=== PATIENT | male | born 1975 ===

== ENCOUNTER 2018-01-07 11:46 | Emergency (ER) | payer SELFPAY ==
[2018-01-07 12:00] VITALS: BP 140/85
--- NOTE | 2018-01-07 12:55 | UC ---
Back Pain HPI - HPI Summary HPI Summary: Patient reports a history of DDD/L1-L2 disc herniations and a five-year history of chronic low back pain. States he was managed by pain management in [place] and moved to [place] 6 months ago. When asked why he had not yet established with primary care to help with his chronic pain he states that he just moved to the [facility] in the past 1 month. When asked where [place] Patient states he was doing some heavy lifting at work 2 days ago and is now having a flare of his chronic low back pain. Is requesting narcotic medication. Of note when [employer] registry was checked patient was receiving oxycodone monthly from a pain management provider in [place] with the last prescription filled in September 2017 which is inconsistent with patient's reported history. - History of Current Complaint Chief Complaint: UCBackPain Stated Complaint: BACK PAIN Time Seen by Provider: 01/07/18 12:21 Hx Obtained From: Patient Onset/Duration: Gradual Onset, Lasting Days, Still Present Timing: Constant Severity Initially: Moderate Severity Currently: Moderate Pain Intensity: 6 Pain Scale Used: 0-10 Numeric Back Pain: Is Discrete @ - LOW BACK Character: Sharp Aggravating Factor(s): Movement Alleviating Factor(s): Rest Associated Signs And Symptoms: Negative: Swelling, Redness, Bruising, Weakness, Bladder Incontinence, Bowel Incontinence Related History: Previous Back Injury - Allergies/Home Medications Allergies/Adverse Reactions: Allergies Allergy/AdvReac Type Severity Reaction Status Date / Time Penicillins Allergy Anaphylatic Verified 01/07/18 12:01 Shock Home Medications: Home Medications Gabapentin 600 mg PO QID 01/07/18 [History Confirmed 01/07/18] PMH/Surg Hx/FS Hx/Imm Hx - Additional Past Medical History Additional PMH: CHRONIC LOW BACK PAIN/DDD - Surgical History Surgical History: None - Family History Family History: NON CONTRIBUTORY - Social History Alcohol Use: Rare Substance Use Type: None Smoking Status (MU): Current Some Day Smoker Type: Cigarettes Review of Systems Constitutional: Negative Skin: Negative Respiratory: Negative Cardiovascular: Negative Gastrointestinal: Negative Musculoskeletal: Arthralgia, Decreased ROM All Other Systems Reviewed And Are Negative: Yes Physical Exam Triage Information Reviewed: Yes Appearance: Well-Appearing, No Pain Distress, Well-Nourished Vital Signs: Initial Vital Signs Temp 99.1 F 01/07/18 11:56 Pulse 91 01/07/18 11:56 Resp 18 01/07/18 11:56 BP 140/85 01/07/18 11:56 Pulse Ox 98 01/07/18 11:56 Vital Signs Reviewed: Yes Eyes: Positive: Conjunctiva Clear ENT: Positive: Hearing grossly normal Neck: Positive: Supple Respiratory: Positive: No respiratory distress, No accessory muscle use Cardiovascular: Positive: Pulses Normal Abdomen Description: Positive: Soft Musculoskeletal: Positive: No Edema, ROM Limited @ - BACK, Other: - TTP PARASPINOUS MUSCLES LEFT LOW BACK. EQUIVOCAL STRAIGHT LEG RAISE Neurological: Positive: Alert Psychological: Positive: Age Appropriate Behavior Skin: Negative: rashes Back Pain Course/Dx - Course Course Of Treatment: Pt's story is not consistent with what is showing on the [employer] registry. Patient offered Toradol injection, muscle relaxer, steroids, prescription strength anti-inflammatories and declined all those options. Specifically requesting narcotic pain management. I advised him that we do not do chronic pain management out of the walk-in clinic. Referral to pain management placed. PT referral also provided. Physician referral Center contact information also provided for patient to set up with primary care. - Differential Dx/Diagnosis Provider Diagnoses: CHRONIC BACK PAIN Discharge - Sign-Out/Discharge Documenting (check all that apply): Patient Departure All imaging exams completed and their final reports reviewed: No Studies - Discharge Plan Condition: Stable Disposition: HOME Patient Education Materials: Chronic Back Pain (DC) Referrals: No Primary Care Phys,NOPCP [Primary Care Provider] - Additional Instructions: PAIN CLINIC REFERRAL PLACED - YOU SHOULD BE RECEIVING A CALL. IF YOU DON'T HEAR FROM THEM THIS WEEK CALL US TO FOLLOW THIS UP. PT REFERRAL PROVIDED. BE SURE TO GO THROUGH SLOW RANGE OF MOTION AND STRETCHING EXERCISES DAILY YOU ARE ABLE TO PREVENT STIFFENING UP AND MAKING THE DISCOMFORT WORSE. GO TO THE ED WITHOUT FAIL IF YOU DEVELOP WORSENING NUMBNESS/TINGLING IN YOUR LEGS, NUMBNESS IN THE GENITAL REGION, LOSS OF BOWEL/BLADDER CONTROL, INTOLERABLE PAIN OR ANY OTHER CONCERNING SYMPTOMS. CALL THE NUMBER BELOW FOR ASSISTANCE IN ESTABLISHING WITH A PCP An additional resource available to assist in finding the appropriate physician for your health care needs is the [facility] ([facility]). You may contact them by calling [phone]. - Billing Disposition and Condition Condition: STABLE Disposition: Home
== END 2018-01-07 12:50 | disposition home or self-care (01) ==
LOC: UCEAST 11:46
DX: M54.5 Low back pain (principal); Z88.0 Allergy status to penicillin; Z72.0 Tobacco use
CPT/HCPCS: 99201; G0463

== ENCOUNTER 2018-02-01 17:43 | Emergency (ER) | payer OTHER ==
[2018-02-01] MEDS ORDERED: predniSONE TAB* 20 MG PO ONE (18:31)
[2018-02-01] MEDS ORDERED: Cyclobenzaprine TAB* 10 MG PO ONE (18:31)
[2018-02-01] MEDS ORDERED: Ketorolac INJ* 60 MG/2 ML VIAL IM ONE (18:31)
--- NOTE | 2018-02-01 18:35 | ED ---
Back Pain - HPI Summary HPI Summary: patient complains of mechanical fall last night with subsequent left lower back pain and pain radiating down left leg. Pain described as constant sharp. Denies head injury, any other injuries, pain or symptoms including urinary retention or incontinence, loss of sensation or function in bilateral lower extremities. History of L1-L2 herniation and chronic low back pain 5 years. - History of Current Complaint Chief Complaint: EDBackInjuryPain Stated Complaint: FALL/LT SIDE/LEG PAIN Time Seen by Provider: 02/01/18 17:59 Hx Obtained From: Patient Onset/Duration: Sudden Onset Onset/Duration: Started Hours Ago Timing: Constant Back Pain Location: Is Discrete @, Radiates To Severity Initially: Moderate Severity Currently: Moderate Pain Intensity: 8 Pain Scale Used: 0-10 Numeric Aggravating Symptom(s): Movement, Bending, Walking Alleviating Symptom(s): Rest Associated Signs And Symptoms: Positive: Negative - Allergies/Home Medications Allergies/Adverse Reactions: Allergies Allergy/AdvReac Type Severity Reaction Status Date / Time Penicillins Allergy Anaphylatic Verified 02/01/18 17:52 Shock PMH/Surg Hx/FS Hx/Imm Hx Endocrine/Hematology History: Denies: Hx Anticoagulant Therapy History: Denies: Hx Dialysis Neurological History: Denies: Hx CVA Psychiatric History: Denies: Hx Autism Infectious Disease History: No Infectious Disease History: Denies: Traveled Outside the [place] in Last 30 Days - Family History Known Family History: Positive: Unknown Family History: NON CONTRIBUTORY - Social History Alcohol Use: Rare Substance Use Type: Reports: None Smoking Status (MU): Current Some Day Smoker Type: Cigarettes Review of Systems Constitutional: Negative Eyes: Negative ENT: Negative Cardiovascular: Negative Respiratory: Negative Gastrointestinal: Negative Genitourinary: Negative Musculoskeletal: Other Skin: Negative Neurological: Negative Psychological: Normal All Other Systems Reviewed And Are Negative: Yes Physical Exam - Summary Physical Exam Summary: Pain with palpation on left lumbar paraspinal muscles and left gluteus. PMS intact distally in left lower extremity. No pain with palpation of right paraspinal muscles, right gluteus, spine. No masses, erythema, ecchymosis, deformity noted to spine. Triage Information Reviewed: Yes Vital Signs On Initial Exam: Initial Vitals Temp Pulse Resp BP Pulse Ox 98.7 F 80 17 149/84 99 02/01/18 17:50 02/01/18 17:50 02/01/18 17:50 02/01/18 17:50 02/01/18 17:50 Vital Signs Reviewed: Yes Appearance: Positive: Well-Appearing Skin: Positive: Warm Head/Face: Positive: Normal Head/Face Inspection Eyes: Positive: Normal Neck: Positive: Supple Respiratory/Lung Sounds: Positive: Clear to Auscultation Cardiovascular: Positive: Normal Abdomen Description: Positive: Nontender Musculoskeletal: Positive: Normal Neurological: Positive: Normal Psychiatric: Positive: Normal AVPU Assessment: Alert - [place] Coma Scale Best Eye Response: 4 - Spontaneous Best Motor Response: 6 - Obeys Commands Best Verbal Response: 5 - Oriented Coma Scale Total: 15 Diagnostics - Vital Signs Vital Signs Temp Pulse Resp BP Pulse Ox 02/01/18 17:50 98.7 F 80 17 149/84 99 - Laboratory Lab Statement: Any lab studies that have been ordered have been reviewed, and results considered in the medical decision making process. Back Pain Course/Dx - Course Course Of Treatment: patient complains of mechanical fall last night with subsequent left lower back pain and pain radiating down left leg. Pain described as constant, sharp. Patient ambulatory since event. Denies head injury, any other injuries, pain or symptoms including urinary retention or incontinence, loss of sensation or function in bilateral lower extremities. History of L1-L2 herniation and chronic low back pain 5 years. Physical exam: Pain with palpation on left lumbar paraspinal muscles and left gluteus. PMS intact distally in left lower extremity. No pain with palpation of right paraspinal muscles, right gluteus, spine. No masses, erythema, ecchymosis, deformity noted to spine. Vital signs within normal limits. Symptoms consistent with sciatica. Rx for Flexeril, prednisone - Diagnoses Provider Diagnoses: Sciatica Discharge - Sign-Out/Discharge Documenting (check all that apply): Patient Departure - Discharge Plan Condition: Stable Disposition: HOME Prescriptions: Cyclobenzaprine TAB* [Flexeril 10 MG TAB*] 10 mg PO TID PRN 5 Days #15 tab PRN Reason: Pain Ibuprofen 800 mg PO TID 5 Days #15 tablet predniSONE TAB* [Deltasone 20 MG TAB*] 40 mg PO DAILY 5 Days #10 tab Patient Education Materials: Sciatica (ED), Lower Back Exercises (ED) Referrals: No Primary Care Phys,NOPCP [Primary Care Provider] - [facility] [Outside] Additional Instructions: Follow-up with primary care. Return to the ED for any new or worsening symptoms. - Billing Disposition and Condition Condition: STABLE Disposition: Home
[2018-02-01 18:51] VITALS: BP 151/74
== END 2018-02-01 18:50 | disposition home or self-care (01) ==
LOC: ED 17:43
DX: M54.42 Lumbago with sciatica, left side (principal); Z88.0 Allergy status to penicillin; Z72.0 Tobacco use
CPT/HCPCS: 96372; 99283; A9270-GY; J1885; J7512